=== PATIENT | female | born 1975 | race Caucasian/White ===

== ENCOUNTER 2017-10-20 14:38 | Outpatient (CLI) | payer BC ==
--- NOTE | 2017-10-20 15:04 | RAD ---
CHEST TWO VIEWS: Comparison: 10-22-15 Clinical history: Cough. FINDINGS: Lungs are clear. No effusion or pneumothorax. There has been no significant interval change from exam. IMPRESSION: 1. Stable chest without focal consolidation. POS: [facility]
== END 2017-10-20 14:39 | disposition home or self-care (01) ==
LOC: SCSRAD 14:38
PROVIDERS: ATTEND Nurse Practitioner Family
DX: R05 Cough (principal)
CPT/HCPCS: 71046

== ENCOUNTER 2019-03-02 22:54 | Emergency (ER) | payer BC ==
[~2019-03-02 22:54] MED LIST: Iopamidol 300 61% 100 ML VIAL FS ONE
[2019-03-02] MEDS ORDERED: Ondansetron PF 4 MG/2 ML Vial ONE (23:29)
[2019-03-02] MEDS ORDERED: Ketorolac Tromethamine 30 MG/ML VIAL ONE (23:29)
[2019-03-02 23:42] LABS: #Basophils 0.1 thou/uL (0.0-0.2); #Eosinphils 0.2 thou/uL (0.0-0.7); #Lymphocytes 1.7 thou/uL (1.20-3.40); #Monocytes 0.5 thou/uL (0.11-0.59); #Neutrophils 10.7 thou/uL (1.40-6.50); %Basophils 0.5 % (0.0-1.0); %Eosinophils 1.4 % (0.0-10.0); %Lymphocytes 13.2 % (21.0-51.0); %Monocytes 3.9 % (0.0-10.0); %Neutrophils 81.1 % (42.0-75.0); Hemoglobin 13.6 g/dL (12.0-16.0); Mean Corpuscular HGB CONC 35.2 g/dL (32.0-36.0); Mean Corpuscular Hemoglobin 31.8 pg (27.0-31.0); Mean Corpuscular Volume 90.2 fL (78.0-98.0); Mean Platelet Volume 9.3 fL (7.4-10.4); Platelet Count 293 thou/uL (130-400); RBC Distribution Width 12.8 % (11.5-14.5); Red Blood Cell (RBC) Count 4.29 mill/uL (4.20-5.40); White Blood Cell (WBC) Count 13.2 thou/uL (4.8-10.8)
[2019-03-02 23:47] LABS: BHCG - Serum Negative (NEGATIVE); Pregs Control Background? CLEAR/WHITE (CLR/WHITE); Pregs Control Bar Appear? YES (CONTROL BAR)
[2019-03-02 23:57] LABS: ALT (SGPT) 18 U/L (8-55); AST (SGOT) 17 U/L (5-34); Albumin 4.2 g/dL (3.5-5.0); Alkaline Phosphatase 76 U/L (40-150); Anion Gap 14 mmol/L (10-20); BUN (Urea Nitrogen) 11 mg/dL (7.0-18.7); Calc. Creatinine Clearance 0 mL/min (70-130); Calcium 9.7 mg/dL (7.8-10.44); Carbon Dioxide 24 mmol/L (22-29); Chloride 106 mmol/L (98-107); Estimated GFR-MDRD 83; Globulin 3.2 g/dL (2.4-3.5); Glucose 118 mg/dL (70-105); Lipase 15 U/L (8-78); Potassium 3.6 mmol/L (3.5-5.1); Protein, Total 7.4 g/dL (6.0-8.3); Sodium 140 mmol/L (136-145)
[2019-03-03 00:01] LABS: Bilirubin, Total 0.4 mg/dL (0.2-1.2)
[2019-03-03 00:45] LABS: Bilirubin Negative (Negative); Blood, Urine Negative (Negative); Clarity Slightly Cloudy (Clear); Glucose, Urine (Dipstick) Negative (Negative); Leukocyte Negative (Negative); Nitrite Negative (Negative); Protein, Urine (Dipstick) Negative (Neg-Trace); Urobilinogen 0.2 mg/dL (0.2-1.0); pH, Urine 5.5 (5.0-9.0)
[2019-03-03 00:50] LABS: Specific Gravity, Urine Greater than 1.035 (1.002-1.036)
--- NOTE | 2019-03-03 08:41 | CT ---
PRELIMINARY REPORT/[facility]/EMERGENCY AFTER HOURS PROCEDURE: EXAM: CT Abdomen and Pelvis With Contrast EXAM DATE/TIME: 03/02/2019 11:52 PM CLINICAL HISTORY: 44 years old, female; Abdominal pain; Localized; Lower; Additional info: PT here with lower abdominal cramping since earlier this evening. Single loose stool, not bloody. Nausea present without vomiting . No fever, no known sick contacts, recent travel, abx use, or bad food or water ingestion. Took hydrocodone at home with some relief. H/o prior cholecystectomy, gastric sleeve, c/s, and append ectomy. Similar to menstrual cramps (last period one week ago) but more severe than usual menses TECHNIQUE: Imaging protocol: Axial computed tomography images of the abdomen and pelvis with intravenous contras t. Coronal reformatted images were created and reviewed. Radiation optimization: All CT scans at this facility use at least one of these dose optimization techniques: automated exposure control; mA and/ or kV adjustment per patient size (includes targeted exams where dose is matched to clinical indication); or iterative reconstruction. Contrast material: [id number]; Contrast volume: 100 ml; Contrast route: IV; COMPARISON: No relevant prior studies available. FINDINGS: Lungs: The visualized portions of the lung bases are normal. ABDOMEN: Liver: There are no focal liver lesions identified. Gallbladder and bile ducts: There has been a cholecystectomy. Pancreas: Normal. No ductal dilation. Spleen: The spleen is normal. Adrenals: The adrenal glands are normal. Kidneys and ureters: There are multiple renal hypodensities that cannot be further characterized on t he current examination. Stomach and bowel: Patient is post sleeve gastrectomy. The stomach is normal. There is wall thickenin g of the colon possibly from underdistention or colitis in the appropriate clinical setting. Appendix: No evidence of appendicitis. PELVIS: Bladder: The bladder is normal. Reproductive: There are numerous masses within the uterus with central hypoattenuation possibly repre senting necrotic fibroids. ABDOMEN and PELVIS: Intraperitoneal space: No free air. Mild pelvic free fluid. Bones/joints: No acute fracture. No dislocation. Soft tissues: Unremarkable. Vasculature: Normal. No abdominal aortic aneurysm. Lymph nodes: Normal. No enlarged lymph nodes. IMPRESSION: 1. There are numerous masses within the uterus with central hypoattenuation likely representing necro tic fibroids. Further evaluation with pelvic ultrasound is advised. 2. There is wall thickening of the colon possibly from underdistention or colitis in the appropriate clinical setting. Thank you for allowing us to participate in the care of your patient. Dictated and Authenticated by: Jose Davis MD 03/03/2019 12:49 AM Central Time ([place] & [place]) FINAL REPORT CT ABDOMEN AND PELVIS PERFORMED WITH CONTRAST ENHANCEMENT: Date: 03/02/19 HISTORY: Lower abdominal pain and cramping since earlier this evening. History of cholecystectomy and gastric sleeve, as well as appendectomy and . FINDINGS: The lung bases are clear. There are fatty changes of the liver. Spleen is within normal limits of siz e. Pancreas is unremarkable. The gallbladder has been removed. Postoperative changes of the stomach a re noted. Right and left adrenal glands, and right and left kidneys are normal. There is no significant periaor tic or mesenteric adenopathy. No definitive bowel wall findings. Colon is underdistended. CT of pelvis was performed with contrast enhancement. Numerous uterine masses, most compatible with f ibroids. Some trace free fluid seen in the region of the right adnexa. Appendix is not identified con sistent with history of surgery. Trace free fluid is seen in the cul-de-sac region. IMPRESSION: 1. Patient is postop cholecystectomy and gastric sleeve procedure. 2. Suggestion of some fatty change of the liver. 3. Uterine fibroids. 4. The changes in the colon are felt to be on the basis of underdistention. This report is in agreement with the preliminary report issued by [facility]. POS: [facility]
== END 2019-03-03 01:07 | disposition home or self-care (01) ==
LOC: SCSER 22:54
DX: D25.9 Leiomyoma of uterus, unspecified (principal)
CPT/HCPCS: 74177; 80053; 81003; 83605; 83690; 84703; 85025; 96361; 96374; 96375; J1885; J2405; Q9967

== ENCOUNTER 2019-05-17 15:52 | Outpatient (CLI) | payer BC ==
--- NOTE | 2019-05-30 06:44 | MMO ---
Bilateral MAMMO Bilat Screen [facility]. CLINICAL HISTORY: Patient is 44 years old and is seen for screening. VIEWS: The views performed were: bilateral craniocaudal with tomosynthesis and bilateral mediolateral oblique with tomosynthesis. FILMS COMPARED: The present examination has been compared to prior imaging studies performed at [facility] on 09/14/2012, 02/27/2013 and 08/23/2014. MAMMOGRAM FINDINGS: There are scattered fibroglandular densities. There is inadequate positioning in the left and right breast. Nipple not in profile on CC or MLO views. Right breast MLO positioning is inadequate. IMPRESSION: FINDINGS IN BOTH BREASTS REQUIRE ADDITIONAL EVALUATION. ADDITIONAL IMAGING. NEED CC OR MLO VIEWS WITH NIPPLE IN PROFILE. NEED REPEAT RIGHT BREAST MLO WITH IMPROVED POSITIONING. THE RESULTS OF THIS EXAM WERE SENT TO THE PATIENT. ACR BI-RADS Category 0 - Incomplete: Need additional imaging evaluation. [facility] will notify the patient of the need for additional imaging services. MAMMOGRAPHY NOTE: 1. A negative mammogram report should not delay a biopsy if a dominant of clinically suspicious mass is present. 2. Approximately 10% to 15% of breast cancers are not detected by mammography. 3. Adenosis and dense breasts may obscure an underlying neoplasm. Reported by: GUILLERMINA GARZA MD Electonically Signed: [id number]
== END 2019-05-17 15:53 | disposition home or self-care (01) ==
LOC: BICMAMMO 15:52
PROVIDERS: ATTEND Obstetrics & Gynecology
DX: Z12.31 Encounter for screening mammogram for malignant neoplasm of breast (principal)
CPT/HCPCS: 77063; 77067